=== PATIENT | male | born 1965 | race Hispanic/Latino ===

== ENCOUNTER 2017-05-06 08:58 | Day surgery (SDC) | payer BC ==
[~2017-05-06 08:58] MED LIST: WATER FOR IRRIG STERILE IR ONE; XYLOCAINE MPF 2% ONE
[2017-05-06] MEDS ORDERED: DIPRIVAN 10 MG/ML IV ONE ×4 (09:52→10:23)
--- NOTE | 2017-05-06 09:53 | Anesthesia Day of Surgery ---
Anesthesia Day of Surgery - Day of Surgery Patient Examined: Yes Patient H&P Reviewed: Yes Patient is NPO: Yes Beta Blockers: Yes
--- NOTE | 2017-05-06 09:53 | Anesthesia Consultation ---
Anesthesia Consult and Med Hx Date of service: 05/06/17 - Airway Anesthetic Teeth Evaluation: Good ROM Head & Neck: Adequate Mental/Hyoid Distance: Inadequate Mallampati Class: Class III Intubation Access Assessment: Possibly Difficult - Pulmonary Exam CTA: Yes - Cardiac Exam Cardiac Exam: RRR - Pre-Operative Health Status ASA Pre-Surgery Classification: ASA3 Proposed Anesthetic Plan: MAC - Pulmonary Hx Smoking: Yes (quit 02/11) Hx Sleep Apnea: No (high risk) - Cardiovascular System Hx Hypertension: Yes (beta blockers) Hx Heart Attack/AMI: No Hx Peripheral Vascular Disease: No - Central Nervous System Hx Neuromuscular Disorder: No Hx Psychiatric Problems: No - Gastrointestinal Hx Gastroesophageal Reflux Disease: No - Endocrine Hx Renal Disease: No Hx Cirrhosis: Yes Hx Liver Disease: Yes Hx Insulin Dependent Diabetes: No - Hematic Hx Anemia: No Hx Sickle Cell Disease: No - Other Systems Hx Alcohol Use: Yes (quit 02/11) Hx Substance Use: No Hx Cancer: No Hx Obesity: Yes (BMI 39.3)
[2017-05-06] MEDS ORDERED: NACL 0.9% 1000 ML 1,000 ML IV SCH (10:00)
--- NOTE | 2017-05-06 10:15 | Short Stay Summary ---
Short Stay Documentation Date of service: 05/06/17 Narrative H&P: The patient presents for follow up endoscopy for a history of bleeding esophageal varices. 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) Past Surgical History: No surgical history Social history: other (Prior history of heavy ETOH abuse, now abstaining for abstaining for the past 4 months) - Allergies and Medications Current Medications: Allergies codeine Allergy (Intermediate, Verified 05/05/17 10:22) Unknown Home Medications Medication Instructions Recorded Confirmed Last Taken Type Azelastine HCl 1 spray INTRANASAL DAILY 05/05/17 05/05/17 Unknown History Multivitamin Tab 1 tab PO DAILY 05/05/17 05/05/17 Unknown History Paroxetine HCl 1 tab PO DAILY 05/05/17 05/06/17 05/05/17 History Vitamin C 1 tab PO DAILY 05/05/17 05/05/17 Unknown History Vitamin D3 1 tab PO DAILY 05/05/17 05/05/17 Unknown History Active Medications Sodium Chloride (Nacl 0.9% 1000 Ml) 1,000 mls @ 50 mls/hr IV DIRECT CHRISTINA Last Admin: 05/06/17 09:50 Dose: 50 mls/hr - Physical exam General appearance: no acute distress, well-nourished, other (obese) Integumentary: no rash, no growths, no abnormal pigmentation HEENT: Atraumatic, PERRLA, EOMI, Mucous membr. moist/pink Lungs: Clear to auscultation Breasts: deferred Heart: Regular rate, Normal S1, Normal S2, No murmurs Gastrointestinal: normoactive bowel sounds, no tenderness, no masses, no organomegaly, no hepatomegaly, no splenomegaly Male Genitourinary: deferred Rectal Exam: deferred Extremities: no ischemia, pulses intact, pulses symmetrical, No edema, normal temperature, normal color, Full ROM Neurological: Normal gait, Normal speech, Strength at 5/5 X4 ext, Normal tone, Sensation intact, Cranial nerves 3-12 NL - Brief post op/procedure progress note Date of procedure: 05/06/17 Findings: see dictated report Estimated blood loss: none Pathology: none Condition: stable - Disposition Condition at discharge: Good - Discharge Diagnoses (1) Cirrhosis Status: Acute (2) Esophageal varices in alcoholic cirrhosis Status: Acute Short Stay Discharge Plan Activity: advance as tolerated, other (no driving for 24 hours) Weight Bearing Status: Weight Bear as Tolerated Diet: advance as tolerated Follow up with: BALTAZAR TORRES MD [Primary Care Provider] - 7 Days
--- NOTE | 2017-05-06 10:19 | Operative Report ---
Operative Report Operative Report: Date of procedure: 05/06/2017 Procedure: Esophagogastroduodenoscopy with banding of esophageal varices Preprocedure diagnosis: History esophageal varices with an upper GI bleed in January 2017. Now for surveillance endoscopy and banding of residual varices Post procedure diagnosis: 2-3+ varices of the esophagus. Portal hypertension gastropathy. No gastric varices. Endoscopist: Dr. Greenberg Anesthesia: Monitored anesthesia care per anesthesia department Medications: Propofol per anesthesia. Estimated blood loss: 0 After careful discussion of the nature and purpose of the procedure as well as details the technique risks benefits and alternatives consent was obtained. The patient was placed in the left lateral decubitus position and medicated per anesthesia. The tip of the CompassMD 570 video scope was passed per orum under direct vision into the esophagus and advanced into the stomach and descending duodenum. The descending duodenum the duodenal bulb and pylorus were symmetrical and normal. The scope was withdrawn into the stomach and the stomach then gently insufflated with air. The antrum was normal. The stomach was further insufflated and the scope was then retroflexed and partially withdrawn. The cardia, fundus, and body of the stomach revealed mild to moderate congestive gastropathy consistent with portal hypertension. There were no discrete varices in the fundus or cardia. The scope was then withdrawn in the forward position. The esophagogastric junction was at the centimeters. 2-3+ esophageal varices were present from the EG junction at 39 cm to approximately 30 cm. The proximal esophageal body was normal throughout. Banding was performed in light of the patient's prior history of variceal bleeding. The scope was transanally withdrawn and the banding device loaded. The scope was then reintroduced per or him under direct vision into the esophagus. 4 bands in a four-quadrant fashion were placed in the distal 3-4 cm of the esophagus. No bleeding was encountered. The procedure was was well tolerated and the patient was observed in recovery. Impressions: 2-3+ distal esophageal varices. Status post 4 quadrant banding. Portal hypertension gastropathy. No gastric varices. Plan: Continue nonselective beta vani therapy. Repeat endoscopy and banding to obliteration in approximately 3 months. Electronically signed: Inder Greenberg MD
[2017-05-06 11:17] VITALS: BP 124/82
--- NOTE | 2017-05-06 12:22 | Post Anesthesia Evaluation ---
- Post Anesthesia Evaluation Patient Participated: Yes Airway Patent: Yes Stable Respiratory Function: Yes Nausea/Vomiting: No Temp > 96.8F: Yes Pain Manageable: Yes Adequeate Hydration: Yes Anesthesia Complications: No Block Receding Appropriately: Not Applicable Patient on Ventilator: No
== END 2017-05-06 08:59 | disposition home or self-care (01) ==
LOC: GIO 08:58
PROVIDERS: ATTEND Internal Medicine Gastroenterology
DX: K70.30 Alcoholic cirrhosis of liver without ascites (principal); I85.10 Secondary esophageal varices without bleeding; K76.6 Portal hypertension; K31.89 Other diseases of stomach and duodenum; I10 Essential (primary) hypertension; E66.9 Obesity, unspecified; Z68.39 Body mass index [BMI] 39.0-39.9, adult; Z87.891 Personal history of nicotine dependence; Z88.5 Allergy status to narcotic agent
CPT/HCPCS: 43244; J2704